=== PATIENT | male | born 1970 | race American Indian/Alaskan Native ===

== ENCOUNTER 2018-08-18 10:08 | Inpatient (IN) | payer BC ==
[2018-08-18] MEDS ORDERED: ASPIRIN PO ONE (11:04)
--- NOTE | 2018-08-18 11:47 | XRay Report ---
AP CHEST: HISTORY: Chest pain AP view of the chest demonstrates a normal mediastinal and cardiac contour with clear lungs and normal bony and soft tissue structures. IMPRESSION: Unremarkable AP chest.
[2018-08-18 12:15] LABS: Basophils % (Auto) 0.6 % (0.0-1.8); Eosinophils # (Auto) 0.2 K/mm3 (0.0-0.4); Eosinophils % (Auto) 2.2 % (0.0-4.3); Hematocrit 45.5 % (35.5-45.6); Hemoglobin 15.4 gm/dl (11.8-15.2); Lymphocytes # (Auto) 2.1 K/mm3 (1.2-5.4); Lymphocytes % (Auto) 28.5 % (13.4-35.0); Mean Corpuscular HGB Conc 34 % (32-34); Mean Corpuscular Volume 90 fl (84-94); Monocytes # (Auto) 0.4 K/mm3 (0.0-0.8); Monocytes % (Auto) 5.6 % (0.0-7.3); Platelet Count 160 K/mm3 (140-440); Red Blood Count 5.04 M/mm3 (3.65-5.03); Red Cell Distribution Width 14.5 % (13.2-15.2)
[2018-08-18 12:35] LABS: BUN/Creatinine Ratio 17; Blood Urea Nitrogen 17 mg/dL (9-20); Hemolysis Index 27
--- NOTE | 2018-08-18 14:24 | Cat Scan Report ---
PROCEDURE: CT HEAD/BRAIN WO CON TECHNIQUE: Computerized tomography of the head was performed without contrast material. HISTORY: left sided weakness intermittantly COMPARISONS: None . FINDINGS: Skull and scalp: Normal . Paranasal sinuses: Normal . Ventricles and subarachnoid spaces: Normal . Cerebrum: No evidence of hemorrhage, acute infarction or mass . Areas of decreased attenuation in th e bilateral periventricular white matter, that may represent demyelinating disease versus chronic amada rovascular ischemic change. Cerebellum and brainstem: No evidence of hemorrhage, acute infarction or mass . Vasculature: Normal noncontrast appearance. IMPRESSION: No acute intracranial abnormality . Areas of decreased attenuation in the bilateral periventricular white matter, that may represent dila zenaida disease versus chronic microvascular ischemic change. Recommend clinical correlation, and conside r further evaluation with MRI. This document is electronically signed by Maggie Andrews MD., Aug 18 2018 02:22:16 PM ET
--- NOTE | 2018-08-18 14:39 | History and Physical Report ---
History of Present Illness Chief complaint: He just acts strange History of present illness: 48 YO Male with HTN, DM, GERD presents to ED for evaluation. Pt states that he is in his usual state of health. Pt acknowledges occasional blurred vision in his left eye as well as left arm weakness. Pt reports that patient has experienced strange behavior, memory loss, Headache, and times when the patient is disoriented with increasing frequency over the past 3 weeks. Pt currently acknowledges mild headache. 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 Pt denies fever, chills, CP, Palpitations, NVD, Polydipsia, polyuria, polyphagia, BRBR, unintentional weight loss, night sweats, bone pain, productive cough, abdominal pain, or recent ill contacts. PT transported to [facility] via private vehicle. Pt seen an evaluated in ED and found to have symptoms consistent with CVA. Pt admitted to Telemetry, and initiated on CVA protocol. Neurology consulted in ED. No prior admissions for review. All listed medication reconciled at time of admission. Past History Past Medical History: diabetes, GERD, hypertension Past Surgical History: No surgical history (reviewed) Social history: , lives with family. denies: smoking, alcohol abuse, prescription drug abuse Family history: diabetes, hypertension Medications and Allergies Allergies Allergy/AdvReac Type Severity Reaction Status Date / Time No Known Allergies Allergy Verified 08/18/18 11:49 Home Medications Medication Instructions Recorded Confirmed Last Taken Type Gabapentin Enacarbil [Horizant] 600 mg PO Q12H 08/18/18 08/18/18 Unknown History Omeprazole 40 mg PO BID 08/18/18 08/18/18 Unknown History amLODIPine [Norvasc] 10 mg PO DAILY 08/18/18 08/18/18 Unknown History hydroCHLOROthiazide [HCTZ] 25 mg PO DAILY 08/18/18 08/18/18 Unknown History Review of Systems Constitutional: no weight gain, no fever Eyes: left: blurred vision Ears, nose, mouth and throat: no ear pain, no ear discharge, no tinnitis, no decreased hearing, no nose pain, no nasal congestion Cardiovascular: no orthopnea, no palpitations, no rapid/irregular heart beat, no edema Respiratory: no cough, no excessive sputum, no shortness of breath Gastrointestinal: no abdominal pain, no nausea, no vomiting, no diarrhea, no constipation, no change in bowel habits Genitourinary Male: no dysuria, no hematuria, no flank pain, no urinary frequency Rectal: no pain Musculoskeletal: no neck pain, no arm numbness/tingling, no low back pain Integumentary: no rash, no pruritis, no redness, no sores, no wounds, no blisters Neurological: no head injury, no transient paralysis, no paralysis, no weakness, no parathesias, no numbness, no tingling Psychiatric: no anxiety, no memory loss, no sleep disturbances, no change in libido, no suicidal ideation Endocrine: no cold intolerance, no heat intolerance, no polyphagia, no polydipsia, no polyuria, no excessive sweating Hematologic/Lymphatic: no easy bruising, no easy bleeding, no lymphadenopathy, no lymphedema Allergic/Immunologic: no urticaria, no anaphylaxis Exam - Constitutional Vitals: Temp Pulse Resp BP Pulse Ox 98.3 F 78 16 153/105 99 08/18/18 11:03 08/18/18 11:03 08/18/18 11:03 08/18/18 11:03 08/18/18 11:03 General appearance: Present: mild distress - EENT Eyes: Present: PERRL ENT: hearing intact, clear oral mucosa - Neck Neck: Present: supple, normal ROM - Respiratory Respiratory effort: normal Respiratory: bilateral: CTA - Cardiovascular Heart Sounds: Present: S1 & S2. Absent: rub, click - Extremities Extremities: pulses symmetrical, No edema Peripheral Pulses: within normal limits - Abdominal General gastrointestinal: Present: soft, non-tender, non-distended, normal bowel sounds Male genitourinary: Present: normal - Integumentary Integumentary: Present: clear, warm, dry - Musculoskeletal Musculoskeletal: gait normal, strength equal bilaterally - Psychiatric Psychiatric: appropriate mood/affect, intact judgment & insight, agitated - Neurologic Neurologic: CNII-XII intact, moves all extremities Results - Labs CBC & Chem 7: 08/18/18 12:01 08/18/18 12:01 Labs: Abnormal lab results 08/18/18 08/18/18 Range/Units 12:01 12:01 RBC 5.04 H (3.65-5.03) M/mm3 Hgb 15.4 H (11.8-15.2) gm/dl Potassium 3.4 L (3.6-5.0) mmol/L Glucose 141 H (75-100) mg/dL Assessment and Plan - Patient Problems (1) CVA (cerebral vascular accident) Current Visit: Yes Status: Acute Qualifiers: Laterality of affected vessel: unspecified Plan to address problem: Stroke protocol; CT Head, neuro checks, MRI Brain, MRA Brain, CT head, PT/OT/Speech Therapy, antiplatelet therapy, Lead level, Lipid panel, Statin therapy, Seizure precautions, (2) DVT prophylaxis Current Visit: Yes Status: Acute Plan to address problem: SCD to BLE while in bed, prophylactic lovenox
[2018-08-18] MEDS ORDERED: SODIUM CHLORIDE FLUSH SYRINGE 10 ML IV PRN (14:40)
[2018-08-18] MEDS ORDERED: TYLENOL PO PRN (14:40)
[2018-08-18] MEDS ORDERED: DULCOLAX PR PRN (14:40)
[2018-08-18] MEDS ORDERED: PHENERGAN PR PRN (14:40)
[2018-08-18] MEDS ORDERED: PROVENTIL IH PRN (14:40)
[2018-08-18] MEDS ORDERED: MILK OF MAGNESIA PO PRN (14:40)
[2018-08-18] MEDS ORDERED: ZOFRAN IV PRN (14:40)
[2018-08-18] MEDS ORDERED: REGLAN PO PRN (14:40)
--- NOTE | 2018-08-18 14:44 | Emergency Department Report ---
ED General Adult HPI - General Chief complaint: Chest Pain Stated complaint: CHEST PAIN/HEADACHES Time Seen by Provider: 08/18/18 11:48 Source: patient Mode of arrival: Ambulatory Limitations: No Limitations - History of Present Illness Initial comments: Patient is a 48-year-old -[place]aced[place] male who is here because of some intermittent weakness on his left side. Patient has a history of hypertension and diabetes. The patient's states that over the last several weeks he's been acting strange and sometimes holding his left arm. Patient states that every once in a while he'll get some blurry vision in his left eye. Patient's symptoms will last anywhere from a few minutes to a few hours. Patient is been very dismissive of the symptoms. Patient states last night he had episode of confusion with the left-sided weakness. Patient has a very mild headache at this time. Patient blood pressures been poorly controlled despite taking me dication according to the patient. He denies any fevers chills nausea vomiting diarrhea. Patient has had some mild chest discomfort which is resolved this time. - Related Data Allergies Allergy/AdvReac Type Severity Reaction Status Date / Time No Known Allergies Allergy Verified 08/18/18 11:49 ED Review of Systems ROS: Stated complaint: CHEST PAIN/HEADACHES Other details as noted in HPI Comment: All other systems reviewed and negative ED Past Medical Hx - Past Medical History Previous Medical History?: Yes Hx Hypertension: Yes Hx Diabetes: Yes Hx GERD: Yes - Social History Smoking Status: Unknown if ever smoked Substance Use Type: None ED Physical Exam - General Limitations: No Limitations General appearance: alert, in no apparent distress - Head Head exam: Present: atraumatic, normocephalic - Eye Eye exam: Present: normal appearance. Absent: PERRL, EOMI - ENT ENT exam: Present: mucous membranes moist - Neck Neck exam: Present: normal inspection - Respiratory Respiratory exam: Present: normal lung sounds bilaterally. Absent: respiratory distress, wheezes, rales, rhonchi - Cardiovascular Cardiovascular Exam: Present: regular rate, normal rhythm. Absent: systolic murmur, diastolic murmur, rubs, gallop - GI/Abdominal GI/Abdominal exam: Present: soft, normal bowel sounds. Absent: distended, te nderness, guarding, rebound - Rectal Rectal exam: Present: deferred - Extremities Exam Extremities exam: Present: normal inspection - Back Exam Back exam: Present: normal inspection - Neurological Exam Neurological exam: Present: alert, oriented X3 - Psychiatric Psychiatric exam: Present: normal affect, normal mood - Skin Skin exam: Present: warm, dry, intact, normal color. Absent: rash ED Course Vital Signs 08/18/18 11:03 Temperature 98.3 F Pulse Rate 78 Respiratory 16 Rate Blood Pressure 153/105 O2 Sat by Pulse 99 Oximetry ED Medical Decision Making - Lab Data Result diagrams: 08/18/18 12:01 08/18/18 12:01 Lab Results 08/18/18 08/18/18 Range/Units 12:01 12:01 WBC 7.5 (4.5-11.0) K/mm3 RBC 5.04 H (3.65-5.03) M/mm3 Hgb 15.4 H (11.8-15.2) gm/dl Hct 45.5 (35.5-45.6) % MCV 90 (84-94) fl MCH 31 (28-32) pg MCHC 34 (32-34) % RDW 14.5 (13.2-15.2) % Plt Count 160 (140-440) K/mm3 Lymph % (Auto) 28.5 (13.4-35.0) % [place] % (Auto) 5.6 (0.0-7.3) % Eos % (Auto) 2.2 (0.0-4.3) % Baso % (Auto) 0.6 (0.0-1.8) % Lymph # 2.1 (1.2-5.4) K/mm3 [place] # 0.4 (0.0-0.8) K/mm3 Eos # 0.2 (0.0-0.4) K/mm3 Baso # 0.0 (0.0-0.1) K/mm3 Seg Neutrophils % 63.1 (40.0-70.0) % Seg Neutrophils # 4.7 (1.8-7.7) K/mm3 Sodium 140 (137-145) mmol/L Potassium 3.4 L (3.6-5.0) mmol/L Chloride 101.6 (98-107) mmol/L Carbon Dioxide 27 (22-30) mmol/L Anion Gap 15 mmol/L BUN 17 (9-20) mg/dL Creatinine 1.0 (0.8-1.5) mg/dL Estimated GFR > 60 ml/min BUN/Creatinine Ratio 17 % Glucose 141 H (75-100) mg/dL Calcium 9.0 (8.4-10.2) mg/dL Troponin T < 0.010 (0.00-0.029) ng/mL - EKG Data -: EKG Interpreted by Me EKG shows normal: sinus rhythm, axis, intervals, QRS complexes, ST-T waves Rate: normal - EKG Data Interpretation: normal EKG - Radiology Data [facility], [place] [address] [place] [address] Cat Scan Report Signed Patient: PENNIE VILLAR MR#: [id number] 7 : 1970 Acct:[id number] Age/Sex: 48 / M ADM Date: 08/18/18 Loc: ED Attending Dr: Ordering Physician: RIYA ACEVEDO MD Date of Service: 08/18/18 Procedure(s): CT head/brain wo con Accession Number(s): [id number] cc: RIYA ACEVEDO MD PROCEDURE: CT HEAD/BRAIN WO CON TECHNIQUE: Computerized tomography of the head was performed without contrast sandra kitchen. HISTORY: left sided weakness intermittantly COMPARISONS: None . FINDINGS: Skull and scalp: Normal . Paranasal sinuses: Normal . Ventricles and subarachnoid spaces: Normal . Cerebrum: No evidence of hemorrhage, acute infarction or mass . Areas of decreased attenuation in the bilateral periventricular white matter, that may represent demyelinating disease versus chronic microvascular ischemic change. Cerebellum and brainstem: No evidence of hemorrhage, acute infarction or mass . Vasculature: Normal noncontrast appearance. IMPRESSION: No acute intracranial abnormality . Areas of decreased attenuation in the bilateral periventricular white matter, that may represent dilated disease versus chronic microvascular ischemic change. Recommend clinical correlation, and consider further evaluation with MRI. This document is electronically signed by Maggie Catalan MD., Aug 18 2018 02:22:16 PM ET Transcribed By: PARTH Dictated By: MAGGIE CATALAN MD Electronically Authenticated By: MAGGIE CATALAN MD Signed Date/Time: 08/18/18 1424 DD/ 0000 TD/TT: 08/18/18 1337 CXR WNL - Medical Decision Making Patient is symptom-free at this time however last night does appear that the patient had episodes of left-sided weakness with blurry vision and confusion. Patient's states that they're calling his name and he seemed as though he was having a difficult time answering questions. The patient states this morning symptoms has resolved. The patient may be having TIAs. Patient will be admitted to the hospitalist service under Dr. Tello. Patient will undergo MRI. Critical Care Time: Yes (30) Critical care attestation.: If time is entered above; I have spent that time in minutes in the direct care of this critically ill patient, excluding procedure time. ED Disposition Clinical Impression: TIA (transient ischemic attack) Disposition: DC-09 OP ADMIT IP TO THIS HOSP Is pt being admited?: Yes Does the pt Need Aspirin: No Condition: Stable Instructions: Transient Ischemic Attack (ED) - Assessment Assessment Interval: Baseline - Level of Consciousness 1a. Level of Consciousness: alert/keenly responsive - LOC Questions 1b. LOC Questions: answers both correctly - LOC Command 1c. LOC Commands: performs tasks correctly - Best Gaze 2. Best Gaze: normal - Visual 3. Visual: no visual loss - Facial Palsy 4. Facial Palsy: normal symmetrical movement - Motor Arm 5a. Motor Arm Left: no drift 5b. Motor Arm Right: no drift - Motor Leg 6a. Motor Leg Left: no drift 6b. Motor Leg Right: no drift - Limb Ataxia 7. Limb Ataxia: absent - Sensory 8. Sensory: normal - Best Language 9. Best Language: no aphasia - Dysarthria 10. Dysarthria: normal - Extinction and Inattention 11. Extinction/Inattention: no abnormality - Scoring Total Score: 0 Stroke Severity: No Stroke Symptoms
[2018-08-18] MEDS ORDERED: GABAPENTIN ENACARBIL 600 MG PO SCH (16:45)
--- NOTE | 2018-08-18 16:53 | Vascular Lab Report ---
PROCEDURE: VL CAROTID DUPLEX BILAT HISTORY: stroke FINDINGS: Real-time ultrasound of the cervical arterial vasculature was performed using grayscale and color Doppler images. On the right, peak systolic velocity in the common carotid artery was 79 cm/s. In the internal caroti d it was 77 cm/s and in the external carotid 82 cm/s. Flow in the vertebral artery was antegrade at 2 6 cm/s. The ratio of flow of the internal carotid to the common carotid was 0.98 which is within norm al limits. On the left, peak systolic velocity in the common carotid artery was 72 cm/s. In the internal carotid it was also 72 cm/s and in the external carotid 44 cm/s. Flow in the vertebral artery was antegrade at 38 cm/s. The ratio of flow of the internal carotid to the common carotid was 1.0, which is within normal limits. IMPRESSION: No stenosis of greater than 50% is seen in the cervical arterial vasculature This document is electronically signed by Jeffery Anderson MD., Aug 18 2018 04:51:06 PM ET
--- NOTE | 2018-08-18 17:00 | Progress Note ---
Subjective Date of service: 08/18/18 Interval history: I reviewed over thed MRI and MRA and there is no acute stroke of evidence of tumor many chronic white matter lesions recommend ischemic stroke work up plan to follow Objective - Vital Sign Vital Signs - 12hr 08/18/18 08/18/18 11:03 16:43 Temperature 98.3 F Pulse Rate 78 93 H Respiratory 16 16 Rate Blood Pressure 153/105 Blood Pressure 116/113 [Left] O2 Sat by Pulse 99 94 Oximetry - Laboratory Findings CBC and BMP: 08/18/18 12:01 08/18/18 12:01 Abnormal Lab Findings: Abnormal Labs 08/18/18 08/18/18 12:01 12:01 RBC 5.04 H Hgb 15.4 H Potassium 3.4 L Glucose 141 H
[2018-08-18 18:28] LABS: Amphetamine Screen,Urine PRESUMPTIVE NEGATIVE; Benzodiazepines Screen,Urine PRESUMPTIVE NEGATIVE; Cannabinoid Screen,Urine PRESUMPTIVE NEGATIVE; Cocaine Screen,Urine PRESUMPTIVE NEGATIVE; Methadone Screen,Urine PRESUMPTIVE NEGATIVE; Opiate Screen,Urine PRESUMPTIVE NEGATIVE
--- NOTE | 2018-08-18 19:52 | Magnetic Resonance Report ---
PROCEDURE: MR BRAIN WO CON TECHNIQUE: Multiplanar multisequence noncontrast MR images of the brain were performed HISTORY: NEW ONSET DIZZINESS / WEAKNESS COMPARISONS: CT brain earlier same day FINDINGS: No focal acute restricted diffusion. Old completed bilateral periventricular lacunar infarcts and left thalamic infarct. Normal T2 flow voids at the skull base. Mildly disconjugate gaze. Anterior ethmoid and frontal sinus mucosal thickening. No acute extra-axial fluid collections. No midline shift or mass effect. No intrahepatic or blood products. Cerebellopontine angle vestibular cochlear nerve sheath bundles are unremarkable. Old completed right pontine 5 mm lacunar infarct. FLAIR images demonstrate white matter tracts of prolonged FLAIR signal intensity. Fully formed corpus callosum. Unremarkable sella turcica, posterior pituitary bright spot, posterior fossa. IMPRESSION: No acute focal restricted diffusion. No evidence for blood. Old completed bilateral periventricular, left thalamic, and right pontine lacunar infarcts.. This document is electronically signed by Ashley Garcia MD., Aug 18 2018 07:50:24 PM ET
--- NOTE | 2018-08-18 19:55 | Magnetic Resonance Report ---
PROCEDURE: MR MRA/MRV HEAD WO CON TECHNIQUE: Axial 3-D [id number] images were performed. HISTORY: NEW ONSET DIZZINESS//WEAKNESS COMPARISONS: CT earlier same day, MRI earlier same day FINDINGS: Source images demonstrate codominant vertebral arteries proximally with the left dominant distally. N ormal posterior fossa branching. Distal cervical internal carotid arteries bilaterally are unremarkable. Left A1 segment is diminutive. Anterior to indicating artery is patent. Left posterior communicating artery is also well delineated. No evidence for aneurysm. IMPRESSION: Diminutive distal right vertebral artery. Diminutive left A1 segment. Patent anterior and left posterior communicating arteries. No aneurysm or significant stenosis distally. This document is electronically signed by Ashley Garcia MD., Aug 18 2018 07:53:08 PM ET
[2018-08-18] MEDS ORDERED: NON-FORMULARY (Omeprazole [Omeprazole] 40 MG) PO SCH (22:00)
[2018-08-18] MEDS: PEPCID PO SCH (22:19)
[2018-08-18] MEDS: PROTONIX PO SCH (22:19)
[2018-08-18] MEDS: NEURONTIN PO SCH (22:19)
[2018-08-18] MEDS ORDERED: D50W (25GM) Syringe IV PRN (22:27)
[2018-08-18] MEDS ORDERED: K-DUR PO ONE (22:30)
[2018-08-19 06:56] LABS: BUN/Creatinine Ratio 15; Blood Urea Nitrogen 17 mg/dL (9-20); Calcium 8.7 mg/dL (8.4-10.2); Hemolysis Index 5
[2018-08-19 08:06] VITALS: BP 143/105
[2018-08-19] MEDS ORDERED: HCTZ PO SCH (10:00)
[2018-08-19] MEDS ORDERED: NORVASC PO SCH (10:00)
[2018-08-19] MEDS ORDERED: ASPIRIN PO SCH (10:00)
[2018-08-19] MEDS: NEURONTIN PO SCH (10:25)
[2018-08-19] MEDS: PROTONIX PO SCH (10:26)
[2018-08-19] MEDS: PEPCID PO SCH (10:27)
[2018-08-19] MEDS: HumaLOG SUB-Q SCH ×3 (10:33→17:51)
--- NOTE | 2018-08-19 16:15 | Progress Note ---
Subjective Date of service: 08/19/18 Interval history: spoke to Gladys Khoury and rechecked the patient he is alert and chayo however Blood sugar check is 46 off glucometer at 4: oo pm he ate full lunch had nurses give him snack and will recheck in 2 hours this low glucose may explain the episode care fully questioned and the is no medication she is aware of the triggered these episodes plan f/u in the office Objective - Vital Sign Vital Signs - 12hr 08/19/18 08/19/18 08/19/18 04:15 07:52 10:26 Temperature 98.0 F 98.4 F Pulse Rate 75 84 84 Respiratory 18 20 Rate Blood Pressure 130/95 143/105 143/105 O2 Sat by Pulse 94 97 Oximetry - Laboratory Findings CBC and BMP: 08/18/18 12:01 08/19/18 05:44 Abnormal Lab Findings: Abnormal Labs 08/18/18 08/18/18 08/18/18 12:01 12:01 21:30 RBC 5.04 H Hgb 15.4 H Potassium 3.4 L Glucose 141 H POC Glucose 116 H 08/19/18 08/19/18 05:44 15:53 RBC Hgb Potassium Glucose 103 H POC Glucose 46 L
--- NOTE | 2018-08-19 16:41 | Discharge Summary ---
Providers - Providers Date of Admission: 08/18/18 14:40 Date of discharge: 08/19/18 Attending physician: STAS RASHID 08/18/18 14:40 Occupational Therapy Evaluate and Treat [CONS] Routine Comment: Reason For Exam: Neuro deficits Physical Therapy Evaluation and Treat [CONS] Routine Comment: Reason For Exam: Neuro deficits 08/18/18 16:45 Consult to Physician [CONS] Routine Comment: Consulting Provider: ELISSA BLANKENSHIP Physician Instructions: Reason For Exam: cva 08/18/18 22:27 Consult to Dietitian/Nutrition [CONS] Routine Physician Instructions: Reason For Exam: Reason for Consult: Diet education Primary care physician: ISAAC PEPPER MD Hospitalization Condition: Stable Disposition: DC-01 TO HOME OR SELFCARE Time spent for discharge: 32 min Core Measure Documentation - Palliative Care Palliative Care/ Comfort Measures: Not Applicable - Core Measures Any of the following diagnoses?: none Exam - Constitutional Vitals: Temp Pulse Resp BP Pulse Ox 98.4 F 84 20 143/105 97 08/19/18 07:52 08/19/18 10:26 08/19/18 07:52 08/19/18 10:26 08/19/18 07:52 General appearance: Present: no acute distress, well-nourished - EENT Eyes: Present: PERRL, EOM intact - Neck Neck: Present: supple, normal ROM - Respiratory Respiratory effort: normal Respiratory: negative: rales, rhonchi, wheezing - Cardiovascular Rhythm: regular Heart Sounds: Present: S1 & S2 - Extremities Extremities: no ischemia, No edema - Abdominal General gastrointestinal: Present: soft, non-tender, non-distended, normal bowel sounds - Integumentary Integumentary: Present: clear, warm - Musculoskeletal Musculoskeletal: strength equal bilaterally - Psychiatric Psychiatric: appropriate mood/affect, cooperative - Neurologic Neurologic: CNII-XII intact, moves all extremities Plan Activity: advance as tolerated, fall precautions Diet: low salt Follow up with: ISAAC PEPPER MD [Primary Care Provider] - 7 Days ELISSA BLANKENSHIP MD [Staff Physician] - 7 Days Prescriptions: Aspirin EC 325 mg PO QDAY #30 tablet. AtorvaSTATin [Lipitor] 40 mg PO QHS #30 tablet
--- NOTE | 2018-08-19 16:48 | Discharge Summary ---
Providers - Providers Date of Admission: 08/18/18 14:40 Date of discharge: 08/19/18 Attending physician: STAS RASHID 08/18/18 14:40 Occupational Therapy Evaluate and Treat [CONS] Routine Comment: Reason For Exam: Neuro deficits Physical Therapy Evaluation and Treat [CONS] Routine Comment: Reason For Exam: Neuro deficits 08/18/18 16:45 Consult to Physician [CONS] Routine Comment: Consulting Provider: ELISSA BLANKENSHIP Physician Instructions: Reason For Exam: cva 08/18/18 22:27 Consult to Dietitian/Nutrition [CONS] Routine Physician Instructions: Reason For Exam: Reason for Consult: Diet education Primary care physician: ISAAC PEPPER MD Hospitalization Reason for admission: Lt sided weakness and blurred vision Condition: Stable Pertinent studies: CT head without contrast : no acute abnormality MRI brain: old infarct MRA brain; diminutive distal rt vertebral artery,lt A1 segment Echocardiogram: EF 45-50%,bubble study suboptimal Carotid Doppler: < 50% stenosis Hospital course: 48 YO Male with HTN, DM, GERD presents to ED for evaluation. Pt states that he is in his usual state of health. Pt acknowledges occasional blurred vision in his left eye as well as left arm weakness. Pt was admitted symptomatically managed,not a candidate for TPA.Had extensive neuro w/u which was negative.Symptoms probablydue to TIA. Evaluated by neurology,agree with the plan and cleared for discharge Discharge diagnosis; --Transient ischemic attack/TIA Aspirin, neuro workup is negative Symptoms resolved Follow PMD /neurology as outpatient --Hypertension; continue. Continue current antihypertensives and -- Peripheral Neuropathy; gabapentin. --Mild elevation of lead levels: advised to see PMD for further evaluation and -- GERD : Protonix --Hypoglycemic episode; resolved [patient reports he has intermittent hypoglycemic episodes for many years] patient's blood sugars are stable at discharge follow-up primary care physician for further evaluation and management Patient is hemodynamically and clinically stable at discharge Disposition: DC-01 TO HOME OR SELFCARE Time spent for discharge: 32 min Core Measure Documentation - Palliative Care Palliative Care/ Comfort Measures: Not Applicable - Core Measures Any of the following diagnoses?: none Exam - Constitutional Vitals: Temp Pulse Resp BP Pulse Ox 98.4 F 84 20 143/105 97 08/19/18 07:52 08/19/18 10:26 08/19/18 07:52 08/19/18 10:26 08/19/18 07:52 General appearance: Present: no acute distress, well-nourished - EENT Eyes: Present: PERRL, EOM intact - Neck Neck: Present: supple, normal ROM - Respiratory Respiratory effort: normal Respiratory: bilateral: diminished, negative: rales, rhonchi, wheezing - Cardiovascular Rhythm: regular Heart Sounds: Present: S1 & S2 - Extremities Extremities: no ischemia, No edema - Abdominal General gastrointestinal: Present: soft, non-tender, non-distended, normal bowel sounds - Integumentary Integumentary: Present: clear, warm - Musculoskeletal Musculoskeletal: strength equal bilaterally - Psychiatric Psychiatric: appropriate mood/affect, cooperative - Neurologic Neurologic: CNII-XII intact, moves all extremities Plan Activity: advance as tolerated, fall precautions Diet: low salt Additional Instructions: Strongly advised to take regular meals in a timely fashion to avoid. Hypoglycemia. Follow-up PMD for further evaluation of history of intermittent hypoglycemic episodes Follow up with: ISAAC PEPPER MD [Primary Care Provider] - 7 Days ELISSA BLANKENSHIP MD [Staff Physician] - 7 Days Prescriptions: Aspirin EC 325 mg PO QDAY #30 tablet. AtorvaSTATin [Lipitor] 40 mg PO QHS #30 tablet
[2018-08-19 17:56] LABS: BUN/Creatinine Ratio 15; Blood Urea Nitrogen 17 mg/dL (9-20); Hemolysis Index 8
[2018-08-19 18:00] LABS: Chol/HDL Ratio 4.17 %
[2018-08-19] MEDS ORDERED: LOVENOX SUB-Q SCH (22:00)
== END 2018-08-19 18:55 | disposition home or self-care (01) | DRG 69 ==
LOC: ED 10:08 → 4A 14:40
PROVIDERS: ADMIT Internal Medicine; ATTEND Internal Medicine
DX: G45.9 Transient cerebral ischemic attack, unspecified (principal); I10 Essential (primary) hypertension; K21.9 Gastro-esophageal reflux disease without esophagitis; E11.42 Type 2 diabetes mellitus with diabetic polyneuropathy; Z82.49 Family history of ischemic heart disease and other diseases of the circulatory system; Z83.3 Family history of diabetes mellitus; Z79.899 Other long term (current) drug therapy
CPT/HCPCS: 36415; 70450; 70544; 70551; 71045; 80048; 80061; 80307; 82962; 83003; 83036; 83655; 84484; 85025; 85652; 86140; 93005; 93010; 93306; 93880; G0378; A9270-GY